=== PATIENT | female | born 1945 | race Caucasian/White ===

== ENCOUNTER → 2016-09-30 | Outpatient (CLI) | payer MEDICARE, OTHER ==
[~2016-09-30] MED LIST: METHACHOLINE KIT (J7674) INH ONE
--- NOTE | 2016-09-30 11:43 | PFTRPT ---
Tech: Juve ARMAS RRT Age: 71 Sex: Female Race: Height: 62.00 Inches Weight: 173.00 Lbs BSA: 1.80 Diagnosis: R05 METHACHOLINE CHALLENGE REPORT: ORDERING PROVIDER: Bassam Robles MD DATE OF SERVICE: 09/30/16 INTERPRETATION: The study was of excellent technical quality. Under protocol, methacholine was administered. Even after a maximal dose of 25 mg (188.875 CDUs), only a 19% decline in the FEV1 was noted. This does not meet criteria for a positive study. Flow rates did return to near baseline post bronchodilator administration. IMPRESSION: Negative methacholine challenge study. Please correlate clinically. MTDD
== END ==
LOC: M CARPUL 10:30
PROVIDERS: ATTEND Internal Medicine Pulmonary Disease
DX: R05 Cough (principal)
CPT/HCPCS: 94070; 95070; J7674